=== PATIENT | female | born 1990 | race African-American/Black ===

== ENCOUNTER 2016-11-01 05:35 | Inpatient (IN) ==
[2016-11-01] MEDS ORDERED: MEPERIDINE 50 MG/1 ML VIAL IV PRN (05:59)
[2016-11-01] MEDS ORDERED: LACTATED RINGERS 500 ML IV PRN (05:59)
[2016-11-01] MEDS ORDERED: ONDANSETRON 4 MG/2 ML VIAL IV PRN ×2 (05:59→18:08)
[2016-11-01] MEDS ORDERED: OXYTOCIN/LR 20 UNIT/1,000 ML BAG IV SCH (06:00)
[2016-11-01] MEDS: LACTATED RINGERS 1,000 ML IV SCH ×3 (06:25→13:16)
[2016-11-01 06:40] LABS: Basophils % 0.3 % (0.0-0.8); Eosinophils # 0.2 10*3/uL (0.0-0.87); Eosinophils % 1.4 % (0.00-10.9); Hematocrit 34.6 VOL% (35.7-47.0); Immature Granulocytes % 0.6 %; Immature Granulocytes Absolute 0.07 #; Lymphocytes # 3.6 10*3/uL (1.4-4.0); Lymphocytes % 29.5 % (21.3-54.2); Mean Corpuscular HGB Conc 34.7 GM/DL (32-36); Mean Corpuscular Hemoglobin 29 PG (27-34); Mean Corpuscular Volume 84.6 FL (87-102); Mean Platelet Volume 10.1 FL (9.6-12.0); Monocytes # 0.6 10*3/uL (0.11-0.8); Monocytes % 4.8 % (1.7-12.7); Neutrophils # 7.6 10*3/uL (1.4-7.4); Neutrophils % 63.4 % (38.7-73.9); Platelet Count 350 T/CUMM (130-400); Red Blood Count 4.09 MC/CUMM (3.8-5.5); Red Cell Distribution Width 13.4 % (9.3-17.3)
[2016-11-01 06:54] LABS: Bilirubin,Total 0.4 MG/DL (0.2-1.0); Calcium 9.4 MG/DL (8.5-10.1); Osmolality,Calculated 269.8 MOS/KG (273-304); Total Protein 6.8 G/DL (6.4-8.3)
--- NOTE | 2016-11-01 07:11 | OB/GYN History & Physical ---
History of Present Illness Chief complaint: 39+ weeks admitted for elective induction History of present illness: Ms. Kamara is a 26 year old female 1 para 0 at 39+ weeks estimated gestational age with ultrasound clinical estimated weight of 7 pounds medical clinical pelvimetry admitted for elective induction. Presentation is confirmed vertex by real-time ultrasound. Risks benefits alternatives were explained patient detail and informed consent was obtained for the above procedures Home Medications Medication Instructions Recorded Confirmed Type Ferrous Sulfate 325 mg PO DAILY 07/31/16 11/01/16 History Vits #90/Iron Fum/FA 1 each PO DAILY 07/31/16 11/01/16 History [ Formula Tablet] Allergies Allergy/AdvReac Type Severity Reaction Status Date / Time Penicillins Allergy Unknown/Unable Verified 07/31/16 17:32 to obtain 12 point system: reviewed and no additional remarkable complaints except as stated Medical,Surgical,& Family Hx - Social History Smoking Status: Never smoker Exam [employer] - Constitutional General appearance: no acute distress - Head Head exam: Present: normal inspection, normocephalic, atraumatic - Neck Neck exam: Present: normal inspection - Respiratory Respiratory exam: Present: clear to auscultation bilaterally - Breast Breasts: as per HPI Menstruation: as per HPI - Cardiovascular Cardiovascular exam: Present: regular rate and rhythm - GI/Abdominal GI/Abdominal exam: Present: normal bowel sounds - Extremities Exam Extremities exam: Present: normal inspection, normal capillary refill - Back Exam Back exam: Present: normal inspection - Neurological Exam Neurological exam: Present: alert, oriented X3 - Psychiatric Psychiatric exam: Present: normal affect, normal mood - Skin Skin exam: Present: normal color Assessment and Plan (1) with 39 completed weeks gestation Status: Acute Current Visit: Yes (2) Elective induction of labor planned Status: Acute Current Visit: Yes Results - Labs CBC & BMP: 11/01/16 06:13 11/01/16 06:13
[2016-11-01] MEDS: CLINDAMYCIN INJ 900 MG in PREMIX 1 EACH IV SCH ×2 (07:20→15:09)
[2016-11-01] MEDS ORDERED: fentaNYL 2 MCG/ROPIV 0.2% EPID 150 ML EPIDURAL SCH (08:19)
[2016-11-01] MEDS ORDERED: hydrOXYzine HCL 25 MG/1 ML VIAL IM PRN (08:19)
[2016-11-01] MEDS ORDERED: CITRIC ACID/SODIUM CITRATE 30 ML UDCUP PO ONE (08:19)
[2016-11-01] MEDS ORDERED: diphenhydrAMINE 50 MG/1 ML VIAL IV PRN (08:19)
[2016-11-01] MEDS ORDERED: ePHEDrine 50 MG/ML AMP IV PRN (08:19)
[2016-11-01] MEDS ORDERED: FAMOTIDINE 20 MG/2 ML VIAL IV ONE (08:19)
[2016-11-01] MEDS ORDERED: LIDOCAINE 1% 50 ML VIAL ONE (17:11)
[2016-11-01] MEDS ORDERED: HYDROCORTISONE 2.5% RECTAL CREAM 30 GM TUBE TOP PRN (18:08)
[2016-11-01] MEDS ORDERED: BISACODYL 10 MG SUPP RECTAL PRN (18:08)
[2016-11-01] MEDS ORDERED: MEASLES/MUMPS/RUBELLA VACCINE 0.5 ML VIAL SUBCUT ONE (18:08)
[2016-11-01] MEDS ORDERED: OXYTOCIN/LR 20 UNIT/1,000 ML BAG IV ONE (18:08)
[2016-11-01] MEDS ORDERED: oxyCODONE/ACETAMINOPHEN 5-325 MG TABLET PO PRN (18:08)
[2016-11-01] MEDS ORDERED: DIPH/TET/ACEL PERT BOOSTER VACCINE 0.5 ML VIAL IM ONE (18:08)
[2016-11-01] MEDS ORDERED: RHO(D) IMMUNE GLOBULIN 300 MCG SYRINGE IM ONE (18:08)
[2016-11-01] MEDS ORDERED: LANOLIN 50% CREAM 0.3 OZ TUBE TOP PRN (18:08)
[2016-11-01] MEDS ORDERED: WITCH HAZEL PADS 100/JAR TOP PRN (18:08)
[2016-11-01] MEDS ORDERED: BENZOCAINE 20%/MENTHOL 0.5% SPRAY 56 GM CAN TOP PRN (18:08)
[2016-11-01] MEDS ORDERED: ACETAMINOPHEN 325 MG TABLET PO PRN (18:08)
--- NOTE | 2016-11-01 18:08 | OB/GYN Progress Note ---
Assessment and Plan (1) with 39 completed weeks gestation Status: Acute Current Visit: Yes (2) Elective induction of labor planned Status: Acute Current Visit: Yes DISPLAY DIRECTOR - PN: Subj Interval history: This Dr. Gutierrez dictating vaginal delivery And in LDR environment under sterile conditions, the patient progressed to completely dilated. She was allowed to push and under [epidural] anesthesia had a normal spontaneous vaginal delivery of a live born [male] infant unweighed [Apgars 9 and 9] over a [second-degree midline episiotomy]. The infant's nose and oropharynx were bulb and DeLee suctioned, and the had spontaneous cry after delivery. The cord was doubly clamped and cut and the infant was handed over to the pediatric team for care. The second-degree midline episiotomy had no extension was repaired with 2-0 Monocryl suture in usual fashion under epidural anesthesia. Presentation was occiput posterior cord blood was obtained the placenta delivered spontaneously intact and IV Pitocin was done. There were no cervical tears. There were no periurethral tears. Estimated blood loss was 250 mL. There were no complications. The bladder was emptied using a catheter prior to delivery. All sponge needle and instrument counts were correct -3 at the end of the delivery. The infant was taken to nursery in stable condition Exam DISPLAY DIRECTOR - Constitutional Vitals: Vital Signs Temp Pulse Resp BP Pulse Ox 11/01/16 12:00 96.5 F L 84 17 99/63 100 11/01/16 08:00 97.7 F 93 H 18 100/67 Results - Labs CBC & BMP: 11/01/16 06:13 11/01/16 06:13
[2016-11-01] MEDS: IBUPROFEN 800 MG TABLET PO PRN (20:50)
[2016-11-01] MEDS: oxyCODONE/ACETAMINOPHEN 5-325 MG TABLET PO PRN (22:57)
[2016-11-01] MEDS: DOCUSATE SODIUM 100 MG CAPSULE PO SCH (23:00)
[2016-11-02 06:02] LABS: Basophils # 0.1 10*3/uL (0.0-0.2); Basophils % 0.2 % (0.0-0.8); Eosinophils % 0.1 % (0.00-10.9); Hematocrit 26.9 VOL% (35.7-47.0); Immature Granulocytes % 0.8 %; Lymphocytes # 3.1 10*3/uL (1.4-4.0); Mean Corpuscular HGB Conc 35.3 GM/DL (32-36); Mean Corpuscular Hemoglobin 30 PG (27-34); Mean Corpuscular Volume 85.1 FL (87-102); Mean Platelet Volume 10.3 FL (9.6-12.0); Monocytes # 1.3 10*3/uL (0.11-0.8); Monocytes % 5.1 % (1.7-12.7); Neutrophils # 21.3 10*3/uL (1.4-7.4); Neutrophils % 81.8 % (38.7-73.9); Red Cell Distribution Width 13.6 % (9.3-17.3)
[2016-11-02 06:05] LABS: Hemoglobin 9.5 GM/DL (12.0-16.0); Platelet Count 273 T/CUMM (130-400); Red Blood Count 3.16 MC/CUMM (3.8-5.5)
[2016-11-02 06:16] LABS: Band Neutrophils 2 % (0-10); Hypochromasia 1+; Lymphocytes 16 % (20-55); Microcytosis 1+; Platelet Estimate Adequate; Segmented Neutrophils 78 % (50-85); Total Cells Counted 100
[2016-11-02] MEDS: oxyCODONE/ACETAMINOPHEN 5-325 MG TABLET PO PRN ×3 (06:52→18:05)
--- NOTE | 2016-11-02 07:17 | Anesthesia Post-Op ---
Anesthesia Post OP - Post Ansesthetic Evaluation Patient seen in post op: Yes Resp: within normal limits CV: within normal limits Mental: within normal limits Temp: within normal limits [id number]: within normal limits Nausea and Vomiting: within normal limits Pain: within normal limits
[2016-11-02] MEDS: MULTIVITAMIN (PRENATAL) TABLET PO SCH (08:18)
[2016-11-02] MEDS: FERROUS SULFATE 325 MG TABLET PO SCH (08:18)
[2016-11-02] MEDS: DOCUSATE SODIUM 100 MG CAPSULE PO SCH ×2 (08:18→20:56)
--- NOTE | 2016-11-02 08:19 | OB/GYN Progress Note ---
Assessment and Plan (1) with 39 completed weeks gestation Status: Acute Current Visit: Yes (2) Elective induction of labor planned Status: Acute Current Visit: Yes SOCIAL SCIENCE PROFESSOR - PN: Subj Interval history: Patient is doing well she is eating ambulating and voiding She is afebrile and her vital signs are stable Her fundus is firm and contracted She has decreased lochia Assessment #1 day #1 doing well Plan continue present management with expected DC tomorrow Exam SOCIAL SCIENCE PROFESSOR - Constitutional Vitals: Vital Signs Temp Pulse Resp BP Pulse Ox 11/02/16 05:00 18 11/02/16 04:00 97.6 F 89 16 96/60 97 11/02/16 03:00 16 11/02/16 01:15 97.5 F L 103 H 16 103/59 97 11/02/16 00:15 97.9 F 101 H 20 122/69 97 11/01/16 23:15 97.6 F 107 H 20 110/59 97 11/01/16 22:45 98.5 F 99 H 20 115/65 97 11/01/16 22:15 98.4 F 98 H 18 115/71 98 11/01/16 20:00 98.7 F 107 H 18 123/67 11/01/16 12:00 96.5 F L 84 17 99/63 100 Results - Labs CBC & BMP: 11/02/16 05:41 11/01/16 06:13
[2016-11-02] MEDS: IBUPROFEN 800 MG TABLET PO PRN ×2 (12:19→18:04)
[2016-11-03 07:24] VITALS: BP 104/65
--- NOTE | 2016-11-03 08:17 | Discharge Summary ---
Hospital Course - Hospital Course Hospital Course: patient did well. She had quick return of bowel bladder function. She remained afebrile and normotensive throughout her hospitalization Diagnosis - Discharge Diagnosis (1) with 39 completed weeks gestation Status: Acute (2) Elective induction of labor planned Status: Acute Discharge Plan - Discharge Data Disposition: Disch To Home/Self Care Condition at Discharge: Stable Discharge Diet: regular diet Activity: resume usual activities as tolerated, other (Pelvic rest) Hygiene: may shower Weight Bearing at Discharge: full weight bearing Driving: no restrictions Contact your physician if you experience:: fever over 101, Difficulty voiding, Redness or swelling, Nausea/Vomiting, Shortness of breath, Bleeding, pain uncontrolled by pain medications - Discharge Medications New Benzocaine 20%/Menth 0.5% Spr [Dermoplast [place]] 1 spray TOP QID PRN PRN Reason: Pain Hydrocortisone 2.5% Rectal Cr [Anusol HC Cream] 1 applic TOP QID PRN applic PRN Reason: Hemorrhoids Ibuprofen Tab [Motrin Tab] 800 mg PO Q6H PRN tablet PRN Reason: Pain Moderate (4-7) Witch Simin Pads [Tucks Pads] 1 applic TOP Q4H PRN applic PRN Reason: Hemorrhoids Acetaminophen Tab [Tylenol Tab] 650 mg PO Q6H PRN tablet PRN Reason: Fever > 100.4 Or Headache HYDROcodone/ACETAMIN 5-325 [[place] 5-325] 1 tablet PO Q4H PRN #10 tablet PRN Reason: Abdominal Pain Continue Vits #90/Iron Fum/FA [ Formula Tablet] 1 each PO DAILY Ferrous Sulfate 325 mg PO DAILY - Follow Up or Referral Follow Up: Yandel Gutierrez MD [Physician] - 2 Weeks - Forms/Instructions Exam - Constitutional Vitals: Period Temp Pulse Resp BP Sys/Hunter Pulse Ox Last 24 Hr 96.3 F-98.3 F 81-90 16-20 104-116/61-79 97-100 Discharge Results Procedures and tests throughout hospitalization: Pending Orders 11/01/16 05:59 Urinalysis Routine DS: Provider Date of admission: 11/01/16 05:50 Primary care physician: . No PCP Attending physician on admission: Ari Wilson Consults: 11/01/16 05:59 Consult to Anesthesiology [CONS] Routine Consulting Provider: Reason for Anesthesiology: Epidural Consult Comment: Epidural for pain managment 11/01/16 18:08 Consult to Watch Parts Inspector [CONS] Routine Consult Watch Parts Inspector: Breast Feeding Discharging clinician: Ari Wilson Expected date of discharge: 11/03/16
[2016-11-03] MEDS: MULTIVITAMIN (PRENATAL) TABLET PO SCH (08:36)
[2016-11-03] MEDS: FERROUS SULFATE 325 MG TABLET PO SCH (08:36)
[2016-11-03] MEDS: DOCUSATE SODIUM 100 MG CAPSULE PO SCH (08:36)
== END 2016-11-03 12:15 | disposition home or self-care (01) | DRG 775 ==
LOC: N.LDOUT 05:35 → N.LD 05:38 → N.OB 22:15
PROVIDERS: ADMIT Specialist; ATTEND Specialist

== ENCOUNTER 2018-02-14 22:46 | Inpatient (IN) ==
[2018-02-14] MEDS ORDERED: ONDANSETRON 4 MG/2 ML VIAL IV PRN (22:57)
[2018-02-14] MEDS ORDERED: LACTATED RINGERS 250 ML IV ONE (22:57)
[2018-02-14] MEDS ORDERED: BUTORPHANOL 2 MG/ML VIAL IV PRN (22:57)
[2018-02-14] MEDS ORDERED: MEPERIDINE 50 MG/1 ML VIAL IV PRN (22:57)
[2018-02-14 23:30] LABS: Basophils % 0.3 % (0.0-0.8); Eosinophils # 0.1 10*3/uL (0.0-0.87); Eosinophils % 1.1 % (0.00-10.9); Hematocrit 33.9 VOL% (35.7-47.0); Hemoglobin 11.1 GM/DL (12.0-16.0); Immature Granulocytes % 0.4 %; Immature Granulocytes Absolute 0.05 #; Lymphocytes # 3.1 10*3/uL (1.4-4.0); Lymphocytes % 26.5 % (21.3-54.2); Mean Corpuscular HGB Conc 32.7 GM/DL (32-36); Mean Corpuscular Hemoglobin 28 PG (27-34); Mean Platelet Volume 10.2 FL (9.6-12.0); Monocytes # 0.5 10*3/uL (0.11-0.8); Monocytes % 4.6 % (1.7-12.7); Neutrophils % 67.1 % (38.7-73.9); Platelet Count 291 T/CUMM (130-400); Red Blood Count 3.99 MC/CUMM (3.8-5.5); Red Cell Distribution Width 13.7 % (9.3-17.3); White Blood Count 11.8 T/CUMM (4-12)
[2018-02-14] MEDS: LACTATED RINGERS 1,000 ML IV SCH (23:40)
[2018-02-14 23:51] LABS: Albumin 2.7 G/DL (3.4-5.0); Bilirubin,Total 0.4 MG/DL (0.2-1.0); Calcium 8.8 MG/DL (8.5-10.1); Osmolality,Calculated 273.7 MOS/KG (273-304); Potassium 3.8 MMOL/L (3.5-5.1); Total Protein 7.2 G/DL (6.4-8.3)
[2018-02-15] MEDS ORDERED: OXYTOCIN/LR 20 UNIT/1,000 ML BAG IV SCH (06:00)
[2018-02-15] MEDS: LACTATED RINGERS 1,000 ML IV SCH ×2 (07:23→10:27)
[2018-02-15] MEDS ORDERED: NALOXONE 0.4 MG/ML VIAL IV PRN (08:01)
[2018-02-15] MEDS ORDERED: CITRIC ACID/SODIUM CITRATE 30 ML UDCUP PO ONE (08:01)
[2018-02-15] MEDS ORDERED: PROMETHAZINE 25 MG/1 ML VIAL IM ONE (08:01)
[2018-02-15] MEDS ORDERED: diphenhydrAMINE 50 MG/1 ML VIAL IV PRN (08:01)
[2018-02-15] MEDS ORDERED: FAMOTIDINE 20 MG/2 ML VIAL IV ONE (08:01)
[2018-02-15] MEDS ORDERED: hydrOXYzine HCL 25 MG/1 ML VIAL IM PRN (08:01)
[2018-02-15] MEDS ORDERED: LACTATED RINGERS 1,000 ML IV ONE (08:01)
[2018-02-15] MEDS ORDERED: fentaNYL 2 MCG/ROPIV 0.2% EPID 100 ML EPIDURAL SCH (08:30)
[2018-02-15] MEDS: ePHEDrine 50 MG/ML AMP IV PRN ×3 (09:52→10:11)
[2018-02-15 10:59] LABS: Apearance,Urine CLEAR (Clear); Bilirubin,Urine Negative (Negative); Blood, Urine Negative (Negative); Glucose,Urine (UA) Negative (Negative); Ketones,Urine Negative (Negative); Mucus,Urine Occasional /LPF (Occasional); Nitrite,Urine Negative (Negative); Protein,Urine Negative; RBC,Urine 2 /HPF (0-4); Squamous Epithelial Cell,Urine Occasional /HPF (0-10); Urine Color Yellow (Yellow); Urine Specific Gravity 1.025 (1.001-1.035); WBC,Urine 1 /HPF (0-6)
[2018-02-15] MEDS ORDERED: miSOPROStol 200 MCG TABLET ONE (12:04)
[2018-02-15] MEDS ORDERED: CARBOPROST TROMETHAMINE 250 MCG/ML AMP IM ONE (12:05)
[2018-02-15] MEDS ORDERED: METHYLERGONOVINE 0.2 MG/1 ML AMP ONE (12:05)
[2018-02-15] MEDS ORDERED: OXYTOCIN/LR 20 UNIT/1,000 ML BAG IV ONE (12:49)
[2018-02-15] MEDS ORDERED: oxyCODONE/ACETAMINOPHEN 5-325 MG TABLET PO PRN ×2 (12:49)
[2018-02-15] MEDS ORDERED: ONDANSETRON 4 MG/2 ML VIAL IV PRN (12:49)
[2018-02-15] MEDS ORDERED: WITCH HAZEL PADS 100/JAR TOP PRN (12:49)
[2018-02-15] MEDS ORDERED: BENZOCAINE 20%/MENTHOL 0.5% SPRAY 56 GM CAN TOP PRN (12:49)
[2018-02-15] MEDS ORDERED: HYDROCORTISONE 2.5% RECTAL CREAM 30 GM TUBE TOP PRN (12:49)
[2018-02-15] MEDS ORDERED: LANOLIN 50% CREAM 0.3 OZ TUBE TOP PRN (12:49)
[2018-02-15] MEDS ORDERED: IBUPROFEN 800 MG TABLET PO PRN (12:49)
[2018-02-15] MEDS ORDERED: MEASLES/MUMPS/RUBELLA VACCINE 0.5 ML VIAL SUBCUT ONE (12:49)
[2018-02-15] MEDS ORDERED: BISACODYL 10 MG SUPP RECTAL PRN (12:49)
[2018-02-15] MEDS ORDERED: RHO(D) IMMUNE GLOBULIN 300 MCG SYRINGE IM ONE (12:49)
[2018-02-15] MEDS ORDERED: ACETAMINOPHEN 325 MG TABLET PO PRN (12:49)
[2018-02-15] MEDS ORDERED: DIPH/TET/ACEL PERT BOOSTER VACCINE 0.5 ML VIAL IM ONE (12:49)
[2018-02-15] MEDS: DOCUSATE SODIUM 100 MG CAPSULE PO SCH (20:15)
[2018-02-16 06:27] LABS: Basophils # 0.1 10*3/uL (0.0-0.2); Basophils % 0.4 % (0.0-0.8); Eosinophils # 0.1 10*3/uL (0.0-0.87); Hematocrit 29.7 VOL% (35.7-47.0); Hemoglobin 9.6 GM/DL (12.0-16.0); Immature Granulocytes % 0.4 %; Immature Granulocytes Absolute 0.05 #; Lymphocytes # 3.2 10*3/uL (1.4-4.0); Lymphocytes % 23.5 % (21.3-54.2); Mean Corpuscular HGB Conc 32.3 GM/DL (32-36); Mean Corpuscular Hemoglobin 27 PG (27-34); Mean Corpuscular Volume 84.6 FL (87-102); Mean Platelet Volume 10.5 FL (9.6-12.0); Monocytes # 0.7 10*3/uL (0.11-0.8); Monocytes % 5.4 % (1.7-12.7); Neutrophils # 9.5 10*3/uL (1.4-7.4); Neutrophils % 69.3 % (38.7-73.9); Platelet Count 261 T/CUMM (130-400); Red Blood Count 3.51 MC/CUMM (3.8-5.5); Red Cell Distribution Width 13.9 % (9.3-17.3); White Blood Count 13.6 T/CUMM (4-12)
[2018-02-16] MEDS: DOCUSATE SODIUM 100 MG CAPSULE PO SCH ×2 (11:45→20:22)
[2018-02-17 07:54] VITALS: BP 107/64
[2018-02-17] MEDS ORDERED: MAGNESIUM HYDROXIDE SUSP 30 ML UDCUP PO PRN (09:23)
[2018-02-17] MEDS: DOCUSATE SODIUM 100 MG CAPSULE PO SCH (09:42)
== END 2018-02-17 12:20 | disposition home or self-care (01) | DRG 807 ==
LOC: N.LDOUT 22:46 → N.LD 22:50 → N.OB 02-15 16:35
PROVIDERS: ADMIT Specialist; ATTEND Specialist